=== PATIENT | male | born 1980 | race Caucasian/White ===

== ENCOUNTER → 2019-03-16 | Outpatient (CLI) | payer OTHER, SELFPAY ==
[2019-03-16 12:50] LABS: Erythrocyte Sedimentation Rate 3 mm/hr (0-15)
[2019-03-16 12:52] LABS: Hematocrit 44.4 % (40-54); Hemoglobin 14.7 g/dl (13.0-16.5); Mean Corp Hgb Conc 33.1 g/gl (32-36); Mean Corpuscular Hgb 27.8 pg (27.0-32.0); Mean Corpuscular Volume 84.1 fL (80-94); Mean Platelet Vol. 10.2 fl (6.2-12.0); Platelet Count 229 K/mm3 (150-450); RBC Distribution Width CV 13.1 % (11.6-14.6); RBC Distribution Width SD 40.1 fl (35.1-43.9); Red Blood Count 5.28 M/mm3 (4.6-6.2); Scan Indicated on CBC? Y/N NO; White Blood Count 5.9 K/mm3 (4.4-11.0)
[2019-03-16 13:02] LABS: AST(SGOT) 17 U/L (15-37); Alanine Aminotransfer ALT/SGPT 23 U/L (16-61); Alkaline Phosphatase 164 U/L (45-117); Anion Gap 8 (5-15); BUN 10 mg/dL (7-18); BUN/Creat Ratio 10.6 RATIO (10-20); Calcium,Total 8.9 mg/dL (8.5-10.1); Chloride 106 mmol/L (98-107); Creatinine, Serum 0.95 mg/dL (0.70-1.30); EST Glomerular Filtration Rate 93 mL/min (>60); Est Glom Filt Rate - Afr Amer 113 mL/min (>60); Glucose 91 mg/dL (74-106); Iron 80 ug/dL (65-175); Potassium 3.8 mmol/L (3.5-5.1); Sodium Level 141 mmol/L (136-145); Thyroid Stim Hormone (TSH) 1.89 uIU/mL (0.358-3.74)
[2019-03-16 13:19] LABS: Vitamin B12 485 pg/mL (211-911); Vitamin D,25 Hydroxy 22.9 ng/mL (29.95-100.01)
== END | disposition home or self-care (01) ==
LOC: MFPLAB 09:47
PROVIDERS: Family Provider Family Medicine; PCP Family Medicine; Referring Provider Family Medicine; Visit Provider Family Medicine
DX: K51.90 Ulcerative colitis, unspecified, without complications (principal); R53.83 Other fatigue
CPT/HCPCS: 36415; 80053; 82306; 82607; 83540; 84403; 84443; 85027; 85652